=== PATIENT | female | born 1990 ===

== ENCOUNTER 2018-10-22 18:30 | Emergency (ER) | payer BC ==
[2018-10-22 19:47] VITALS: BMI 36.0
[2018-10-22 20:44] LABS: SQUAMOUS EPITHIAL < 1 /hpf (0-5); URINE BACTERIA RARE (<OCC); URINE BILIRUBIN NEGATIVE (NEGATIVE); URINE BLOOD SMALL (NEGATIVE); URINE CLARITY CLEAR (Clear); URINE COLOR STRAW (YELLOW); URINE GLUCOSE (UA) NEG (NEGATIVE); URINE LEUKOCYTE ESTERASE NEG Leu/uL (Negative); URINE PROTEIN NEGATIVE (NEGATIVE); URINE UROBILINOGEN 0.2-1.0 mg/dL (0.2-1.0)
[2018-10-22] MEDS: Lactated Ringer's 1,000 ML IV SCH (20:45)
[2018-10-22 22:06] LABS: SPECIMEN COMMENT CLOUDY
[2018-10-22] MEDS ORDERED: Betamethasone Soluspan 30 mg/5mL Inj Susp IM ONE (22:31)
[2018-10-22] MEDS ORDERED: Magnesium Sulfate 2 gm/50 ml 2 GM/50 ML BAG IVPB ONE (22:35)
[2018-10-22] MEDS ORDERED: Magnesium Sul 40GM/1L SW 40 GM/1,000 ML ML IV ONE ×2 (22:44→22:58)
[2018-10-22] MEDS: Magnesium Sulfate 4 gm/100 ml 4 GM/100 ML BAG IV ONE (22:50)
--- NOTE | 2018-10-22 22:52 | OBHP ---
Datetime: 10/22/2018 19:02 IP Adm Impression: , intrauterine IP Admit Plan: Observation/Evaluation Admit Comment, IP Provider: HPI: 28 YO with IUP at EGA 30.5 wks as per LMP 03/21/18, GREG December 26 9, who presents to [facility] with c/o pelvic pain and lower back pain that started approximately at 2 PM t his afternoon and has been increasing in intensity up to 02/27 at this time, is intermittent. Patient denies VB, LOF, N/V, ROBERTSON, CP, dizziness, dysuria, fever, chills or other acute complaint at this time. Patient reports +FM. ROS: Unremarkable, except as per HPI. OBGYN: Patient reports h/o spotting in the first trimester, which resolved spontaneously. She beena es any other risks or problems during her Care Provider: Dr Thomason PMH: Denies FMH: None SocialHx: Denies Tobacco/ETOH/Rec drug use. SURG: None Allergies: NKA MEDS: Vit, folic acid LABS: pending records PE GEN: NAD, appears comfortable HEENT: NCAT RESP: CTA b/l CV: RRR, S1S2 present, no murmurs Abdomen: Gravid EXT: mild LE edema +1 A/P 28 YO with IUP at EGA 30.5 wks as per LMP 03/21/18, GREG December 26, presenting with c/o intermit tent pelvic and lower back pain for approximately 5 hours. Will r/o onset of labor. -Observation with monitoring of maternal VS and Uterine contx -FHR monitoring: noted in 150s range -UA stat -OB LTD BP US stat -Cervical length US stat -IVF LR 1 L Case discussed with attending Dr Heena Winter MD PGY1 Addendum: I saw and examined patient at presentation. Patient observed at OB ED. Biophysical profile repor ts 8 out of 8. Cervical length 2 cm. fibronectin negative. I called and discussed patient and results with MFM and patient's primary physician Dr. Thomason. As per [facility] recommendation, plan for transferring patient to [facility] and facility with level 3 NICU. I discussed plan with patient and all patient questions answered. Patient given first dose of steroids for lung maturity, patient started on magnesium sulfate , and transfer process started. Heena HETERESE - PN: Normal General - PN: Normal FHR - Baseline A Provider: 150 Comments, ACOG Physical Exam: See triage comments EGA AdmitDate IP: 30.5 Vital Signs Provider: Reviewed; Within Normal Limits IP Chief Complaint: Maternal discomfort NICHD Variability Prov Fetus A: Moderate 6-25bpm NICHD Decel Fetus A IP Provider: None
[2018-10-22] MEDS: Dexamethasone 4 mg/1 ml IM STA (23:04)
[2018-10-23 03:40] VITALS: BP 115/71; PULSE 79; RESP 20; TEMP 98.3; O2SAT 100
--- NOTE | 2018-10-23 15:59 | US ---
Date of service: 10/22/2018 HISTORY: pelvic pain COMPARISON: None available. TECHNIQUE: As per referring physician demand, cervical length measuring was made alone with no interrogation of the gestation specifically. FINDINGS: Cervical length is measured 2.0 cm with limited funneling of the internal os questioned. No definitive mass seen associated. IMPRESSION: Cervical length 2.0 cm with limited funneling of the internal os question. Concordant preliminary report from [place], 10/22/2018, 10:33 p.m..
--- NOTE | 2018-10-23 16:09 | US ---
Date of service: 10/22/2018 PROCEDURE: Limited Obstetric Ultrasound/Biophysical Profile. HISTORY: pelvic pain LMP: 03/21/2018 suggesting gestation of 30 weeks 5 days. COMPARISON: None available. FINDINGS: Limited obstetric ultrasound was performed using transabdominal technique with biophysical profile submitted as well. A single viable intrauterine gestation is identified in breech lie with cardiac activity recorded 145 beats reiterated. No normal development is appreciated posteriorly without abruption or previa appreciated. Limited biometry was obtained however no anatomical survey was performed as per request. Biparietal diameter measures 8.02 cm corresponding to 32 weeks 1 day. Head circumference 28.18 cm corresponds to 30 weeks 6 days. Abdominal circumference measures 24.34 cm corresponding to 28 weeks 4 days. Femur length 6.12 cm corresponds to 31 weeks 5 days. And fluid index 17.4 cm which is within normal limits. HC/AC ratio is 1.16 which is upper range of normal. Estimated weight 3 lb 6 oz or 1518 g +/-standard deviation. Estimated date of delivery 12/25/2018. Biophysical profile: movement 2/2. tone 2/2. breathing 2/2. Amniotic fluid 2/2. ELMO as per above. Total biophysical profile score 8/8. OTHER FINDINGS: None. IMPRESSION: Total biophysical profile score 8/8. Single viable intrauterine gestation in breech lie with average ultrasonic age 30 weeks 6 days. Measures only 2.1 cm. Funneling of the internal os is questioned in separate cervix transvaginal ultrasound performed 11/01/2018 immediately after this exam. Internal os is not clearly depicted in the current images due to transabdominal technique. Please see separate report and images.
== END 2018-10-22 23:30 | disposition short-term general hospital (02) ==
LOC: H.EROB2 18:30
DX: O26.93 Pregnancy related conditions, unspecified, third trimester (principal); R10.2 Pelvic and perineal pain; M54.5 Low back pain; Z3A.30 30 weeks gestation of pregnancy
CPT/HCPCS: 76815; 76817; 76818; 81003; 82731; 96360; 96372; 99284; J1100; J3475; J7120